=== PATIENT | female | born 2005 | race Caucasian/White ===

== ENCOUNTER 2025-06-10 00:02 | Emergency (ER) | payer SELFPAY ==
[~2025-06-10] VITALS: Ht 172.7 cm; Wt 50.0 kg
[2025-06-10 00:08] VITALS: O2SAT 97
[2025-06-10 00:23] VITALS: BP 96/62; PULSE 72; RESP 11; TEMP 36.6; O2SAT 100
== END 2025-06-10 00:49 | disposition home or self-care (01) ==
LOC: ER 00:02
DX: F10.129 Alcohol abuse with intoxication, unspecified (principal); Y90.9 Presence of alcohol in blood, level not specified
CPT/HCPCS: 99283